=== PATIENT | female | born 1965 | race Caucasian/White ===

== ENCOUNTER → 2016-10-06 15:46 | Outpatient (CLI) | payer OTHER, MEDICARE ==
[2015-01-13 14:24] VITALS: BMI 38.7
[~2016-10-06 15:46] MED LIST: AMBIEN10 MG PO; ASPIRIN81 MG PO; CARDIZEM CD180 MG PO; COUMADIN5 MG PO; CYMBALTA60 MG PO; DOXYCYCLINE HY100 M2 PO; FOLIC ACID1 MG PO; GLUCOPHAGE500 MG PO; HUMIRA20 MG/0.4 SQ; INVANZ 1 GM/NS 11 G1 IV; LOMOTIL TABLET1 TAB PO; LYRICA200 MG PO; MEDROL DOSE PACK4 MG PO; METHOTREXATE SC; METHOTREXATE2.5 MG PO; OXYCONTIN15 MG PO; OXYCONTIN20 MG PO; PEPCID20 MG PO; PERCOCET 10/3251 TA1 PO; PERCOCET 5-3251 TAB PO; PREDNISONE5 MG PO; TRIAMTERENE-HCT1 TA1 PO; VITAMIN D50000 UNIT PO; XARELTO15 MG PO; XARELTO20 MG PO; ZANAFLEX4 MG PO
== END | disposition home or self-care (01) ==
LOC: D.LABREF 15:46
DX: T81.4XXA Infection following a procedure, initial encounter (principal)

== ENCOUNTER → 2018-04-25 07:53 | Day surgery (SDC) | payer OTHER, MEDICARE ==
[~2018-04-25] VITALS: Ht 175.3 cm; Wt 113.4 kg
[~2018-04-25 07:53] MED LIST changes: +EEMT H.S. 0.6251 TAB PO; +PREDNISONE10 MG PO
[2018-04-25 08:23] LABS: HEMATOCRIT 42.8 % (36.0-48.0); HEMOGLOBIN 14.9 g/dL (12-16); MCH 30.8 pg (26.0-34.0); MCHC 34.8 g/dL (31.0-37.0); MCV 88.6 fL (80.0-100.0); MEAN PLATELET VOLUME 11.3 fL (7.4-10.4); RBC 4.83 10x6/uL (4.00-5.40); RDW 13.2 % (11.5-14.5); WBC 8.5 10x3/uL (4.8-10.8)
[2018-04-25 08:30] LABS: ANION GAP 8.4 mmol/L (8-16); CALCIUM 8.4 mg/dL (8.5-10.1); CARBON DIOXIDE 29.5 mmol/L (21.0-32.0); POTASSIUM - SERUM 3.9 mmol/L (3.5-5.1)
[2018-04-25 08:37] LABS: HCG URINE NEGATIVE (NEGATIVE)
[2018-04-25 08:55] VITALS: BP 128/87; Ht 175.3 cm; Wt 113.4 kg
[2018-04-30 16:07] LABS: AEROBE ID Final report (())
[2018-05-01 19:10] LABS: AEROBE ID Final report (())
== END | disposition home or self-care (01) ==
LOC: D.OPS 07:53 → D.PAN 10:00
PROVIDERS: Anesthesiology; Podiatrist Foot & Ankle Surgery
DX: T81.4XXA Infection following a procedure, initial encounter (principal); L08.89 Other specified local infections of the skin and subcutaneous tissue; Z01.812 Encounter for preprocedural laboratory examination

== ENCOUNTER → 2018-05-24 13:09 | Outpatient (CLI) | payer OTHER, MEDICARE ==
[2018-04-25 08:55] VITALS: BMI 37.0
== END | disposition home or self-care (01) ==
LOC: D.LABREF 13:09
DX: L03.116 Cellulitis of left lower limb (principal)

== ENCOUNTER → 2018-09-28 07:14 | Outpatient (CLI) | payer OTHER, MEDICARE ==
[2018-04-25 08:55] VITALS: BMI 37.0
== END | disposition home or self-care (01) ==
LOC: D.US 07:14
DX: R10.84 Generalized abdominal pain (principal)

== ENCOUNTER → 2018-10-11 07:15 | Outpatient (CLI) | payer OTHER, MEDICARE ==
[2018-04-25 08:55] VITALS: BMI 37.0
== END | disposition home or self-care (01) ==
LOC: D.NM 07:15
PROVIDERS: ATTEND Family Medicine
DX: R10.9 Unspecified abdominal pain (principal)